=== PATIENT | male | born 1995 | race Caucasian/White ===

== ENCOUNTER 2018-09-22 13:35 | Inpatient (IN) | payer BC, SELFPAY ==
[2018-09-22] VITALS (19 sets, daily range): BP systolic 135–166; BP diastolic 66–98; PULSE 76–140; RESP 11–20; TEMP 36.6–37.4; O2SAT 98–100; BMI 24.5; BMI 23.8; BMI 23.9
--- NOTE | 2018-09-22 14:07 | EKG12_ITS ---
Test Reason : PALP Blood Pressure : / mmHG Vent. Rate : 140 BPM Atrial Rate : 140 BPM P-R Int : 168 ms QRS Dur : 096 ms QT Int : 246 ms P-R-T Axes : 067 072 264 degrees QTc Int : 375 ms Atrial tachycardia Anterior infarct , age undetermined ST & T wave abnormality, consider lateral ischemia Abnormal ECG Fast paper speed Reconfirmed by JOZEF HATFIELD, DAYTON ([id number]), assistant production editor RAMON HI ([id number]) on 09/29/2018 9:18:38 AM Referred By: Dayton Austin Confirmed By:DAYTON AUSTIN MD
--- NOTE | 2018-09-22 14:07 | EKG12_ITS ---
Test Reason : NSR Blood Pressure : / mmHG Vent. Rate : 081 BPM Atrial Rate : 081 BPM P-R Int : 150 ms QRS Dur : 100 ms QT Int : 350 ms P-R-T Axes : 057 065 -07 degrees QTc Int : 406 ms Normal sinus rhythm with sinus arrhythmia Minimal voltage criteria for LVH, may be normal variant T wave abnormality, consider lateral ischemia Abnormal ECG When compared with ECG of 22-SEP-2018 14:02, MANUAL COMPARISON REQUIRED, DATA IS UNCONFIRMED Confirmed by JOZEF HATFIELD, DAYTON ([id number]), editor producer RAMON HI ([id number]) on 09/27/2018 5:27:20 PM Referred By: Dayton Austin Confirmed By:DAYTON AUSTIN MD
--- NOTE | 2018-09-22 14:10 | RAD_ITS ---
STUDY: X-RAY CHEST REASON FOR EXAM: Male, 22 years old. Palpitations. TECHNIQUE: Single AP portable view of the chest. COMPARISON: None. FINDINGS: EKG electrodes are seen. The lungs are clear and expanded. There is no demonstrated pleural abnormality. Normal size heart. Normal mediastinum and ruba. Normal visualized pulmonary arteries. Normal visualized aortic arch and descending thoracic aorta. Normal visualized thoracic spine. Normal visualized ribs, clavicles, and shoulders. There is no demonstrated abnormality of the visualized soft tissue structures of the upper abdomen. RAD/Chest 1 View (Portable) IMPRESSION: Normal x-ray examination of the chest. Electronically Signed: Terrance North MD at 14:50 EST , Service support ,
[2018-09-22 14:20] LABS: Absolute Lymphocyte Count 2.27 X10^3/ul (0.83-4.51); Absolute Neutrophil Count 3.2 X10^3/uL (2.0-7.7); Basophil# 0.02 X10^3/uL; Basophil% 0.3 % (0-1); Eosinophil# 0.08 X10^3/uL; Eosinophils% 1.3 % (0-5); Hematocrit 47.8 % (40-54); Lymphocyte # 2.27 X10^3/ul (4.0); Lymphocyte % 36.7 % (19-41); Mean Corp Hgb Conc 33.5 g/gl (32-36); Mean Corpuscular Hgb 29.9 pg (27.0-32.0); Mean Corpuscular Volume 89.2 fL (80-94); Monocyte# 0.55 X10^3/uL; Monocyte% 8.9 % (0-10); Neutrophil # 3.24 X10^3/uL (2.7-7.7); Neutrophil % 52.3 % (47-70); Platelet Count 288 K/mm3 (150-450); RBC Distribution Width CV 13.3 % (11.6-14.6); RBC Distribution Width SD 43.2 fl (35.1-43.9); Red Blood Count 5.36 M/mm3 (4.6-6.2); White Blood Count 6.2 K/mm3 (4.4-11.0)
[2018-09-22 14:21] LABS: POSITIVE COUNT NO; POSITIVE DIFFERENTIAL NO; POSITIVE MORPHOLOGY NO
[2018-09-22] MEDS: Adenosine 6 MG/2 ML Syringe IV (14:23)
[2018-09-22] MEDS: Adenosine 6 MG/2 ML Syringe 12 MG IV ×2 (14:26→16:10)
--- NOTE | 2018-09-22 14:36 | ED.VISSUMM ---
- ER Visit Summary Date of Service: 09/22/18 Chief Complaint: Palpitations History of Present Illness: The patient is a 22 M who states that just prior to arrival he was sitting at his desk at work. States nothing was out of the ordinary. He reports that he has sudden onset of feeling not right. He went to the bathroom took his pulse and noticed that it was racing. He is never had this before. He notes 2-3 cups of coffee this morning which is actually less than what he would normally drink. He is a non-smoker. He denies any ingestions. In high school he is a swimmer and ran cross-country. He had no issues with aerobic exercise or any syncope. He never had any abnormal sports physicals. He has not remained with consistent exercise. He has no unexpected weight loss or weight gain. No thyroid issues. He denies any muscle cramps. Physical Examination: Stable noted tachycardia in the 130s-140 range Gen: Well-nourished well-developed Head: Normocephalic atraumatic Eyes: Perrl EOMI ENT: TMs clear no rhinorrhea moist mucous membranes Neck: Supple no lymphadenopathy no JVD nontender CVS: Regular rate cardiac rhythm no murmurs normal S1-S2 Respiratory: No distress clear to auscultation bilaterally chest nontender Abdomen: Soft nontender nondistended normal bowel sounds no masses Back: Nontender Extremity: Nontender no edema Skin: Normal color no rash Neuro: alert orientated ?3 CN II-XII intact normal strength sensation reflexes gait cerebellar Psych: Anxious Test Results: EKG demonstrates a tachycardia I see P waves before each QRS complex.. CBC BMP magnesium and TSH were normal. Chest x-ray shows a normal mediastinal silhouette. Emergency Department Course and Treatment: I attempted a vagal maneuver with no success. Patient received 6 mg of adenosine with no change. 12 mg of adenosine resulted in about 3 bradycardic beats each with the P wave and then back into a tachycardia. I spoke with cardiology, Dr. Austin, who recommended 20 mg of Cardizem. We administered this with no significant change in his rate. I spoke again with cardiology and we are going to administer 12 mg of adenosine. Impression: 1. Tachycardia This note was generated with [employer] dictation software. It may contain incorrect words, spelling, and punctuation that were not noted in review of the chart prior to signing <Hunter Vasquez - Last Filed: 09/22/18 16:02> - ER Visit Summary Date of Service: 09/22/18 Emergency Department Course and Treatment: Dr. Austin came in to evaluate the patient and will admit the patient to his service for observation and further evaluation of his SVT. Disposition: Admit for observation Impression: Supraventricular tachycardia This note was generated with ZenRoboticsation software. It may contain incorrect words, spelling, and punctuation that were not noted in review of the chart prior to signing <Alvin Lam - Last Filed: 09/22/18 17:05> ED Disposition <Hunter Vasquez - Last Filed: 09/22/18 16:02> <Alvin Lam - Last Filed: 09/22/18 17:05> - Plan for ED Patient: Disposition: Acute Care Hospital [facility] Diagnosis: Supraventricular tachycardia Referrals: Care Physician,No Primary [Primary Care Provider] -
[2018-09-22 14:38] LABS: Anion Gap 10 (5-15); BUN 19 mg/dL (7-18); BUN/Creat Ratio 14.8 RATIO (10-20); Calcium,Total 9.6 mg/dL (8.5-10.1); Chloride 102 mmol/L (98-107); Creatinine, Serum 1.28 mg/dL (0.70-1.30); EST Glomerular Filtration Rate 74 mL/min (>60); Est Glom Filt Rate - Afr Amer 90 mL/min (>60); Estimated Creatinine Clearance 90.52 ml/min; Glucose 105 mg/dL (74-106); Potassium 3.2 mmol/L (3.5-5.1); Sodium Level 139 mmol/L (136-145); Thyroid Stim Hormone (TSH) 0.75 uIU/mL (0.358-3.74)
--- NOTE | 2018-09-22 14:46 | ED.DCSUM_ITS ---
- ER Visit Summary Date of Service: 09/22/18 Chief Complaint: Palpitations History of Present Illness: The patient is a 22 M who states that just prior to arrival he was sitting at his desk at work. States nothing was out of the ordinary. He reports that he has sudden onset of feeling not right. He went to the bathroom took his pulse and noticed that it was racing. He is never had this before. He notes 2-3 cups of coffee this morning which is actually less than what he would normally drink. He is a non-smoker. He denies any ingestions. In high school he is a swimmer and ran cross-country. He had no issues with aerobic exercise or any syncope. He never had any abnormal sports physicals. He has not remained with consistent exercise. He has no unexpected weight loss or weight gain. No thyroid issues. He denies any muscle cramps. Physical Examination: Stable noted tachycardia in the 130s-140 range Gen: Well-nourished well-developed Head: Normocephalic atraumatic Eyes: Perrl EOMI ENT: TMs clear no rhinorrhea moist mucous membranes Neck: Supple no lymphadenopathy no JVD nontender CVS: Regular rate cardiac rhythm no murmurs normal S1-S2 Respiratory: No distress clear to auscultation bilaterally chest nontender Abdomen: Soft nontender nondistended normal bowel sounds no masses Back: Nontender Extremity: Nontender no edema Skin: Normal color no rash Neuro: alert orientated ?3 CN II-XII intact normal strength sensation reflexes gait cerebellar Psych: Anxious Test Results: EKG demonstrates a tachycardia I see P waves before each QRS complex.. CBC BMP magnesium and TSH were normal. Chest x-ray shows a normal mediastinal silhouette. Emergency Department Course and Treatment: I attempted a vagal maneuver with no success. Patient received 6 mg of adenosine with no change. 12 mg of adenosine resulted in about 3 bradycardic beats each with the P wave and then back into a tachycardia. I spoke with cardiology, Dr. Austin, who recommended 20 mg of Cardizem. We administered this with no significant change in his rate. I spoke again with cardiology and we are going to administer 12 mg of adenosine. Impression: 1. Tachycardia This note was generated with gamesGRABR dictation software. It may contain incorrect words, spelling, and punctuation that were not noted in review of the chart prior to signing <Hunter Vasquez - Last Filed: 09/22/18 16:02> - ER Visit Summary Date of Service: 09/22/18 Emergency Department Course and Treatment: Dr. Austin came in to evaluate the patient and will admit the patient to his service for observation and further evaluation of his SVT. Disposition: Admit for observation Impression: Supraventricular tachycardia This note was generated with SmartCrowdsation software. It may contain incorrect words, spelling, and punctuation that were not noted in review of the chart prior to signing <Alvin Lam - Last Filed: 09/22/18 17:05> ED Disposition <Hunter Vasquez - Last Filed: 09/22/18 16:02> <Alvin Lam - Last Filed: 09/22/18 17:05> - Plan for ED Patient: Disposition: Acute Care Hospital [facility] Diagnosis: Supraventricular tachycardia Referrals: Care Physician,No Primary [Primary Care Provider] -
[2018-09-22] MEDS: dilTIAZem 25 MG/5 ML Vial 20 MG IV BOLUS ×2 (15:33→18:24)
--- NOTE | 2018-09-22 17:56 | ECHOD_ITS ---
Reason For Study: ARRHRYTHMIA Procedure This was a 2D Doppler, Color Flow transthoracic echocardiogram. Exam performed portable in patient room. Left Ventricle Normal LV size. Left ventricular systolic function is normal. The estimated ejection fraction is 65 %. No evidence for diastolic dysfunction. No regional wall motion abnormalities noted. Right Ventricle Normal RV size. Normal systolic function. Atria Normal left atrium. Normal right atrium. Normal atrial septum. Mitral Valve Normal mitral valve. Tricuspid Valve Normal tricuspid valve. Trivial tricuspid valve insufficiency. Aortic Valve Normal aortic valve. Trisinus/trileaflet aortic valve. Pulmonic Valve Normal pulmonic valve. Great Vessels Normal aortic root. The pulmonary artery is normal size. Normal inferior vena cava. Pericardium/Pleural No pericardial effusion. MMode/2D Measurements & Calculations LVIDd: 4.3 cm IVSd: 0.83 cm Ao root diam: 2.8 cm LVIDs: 3.0 cm LVPWd: 0.90 cm RVDd: 3.4 cm FS: 29.7 % LAV(MOD-bp): 24.1 ml LVAd ap4: 33.4 cm2 SV(MOD-sp4): 66.2 ml LAV(MOD-bp) Indexed: 12.8 ml/m2 EDV(MOD-sp4): 109.2 ml LAV(MOD-sp2): 23.4 ml EDV(sp4-el): 113.2 ml LAV(MOD-sp4): 24.3 ml LVAs ap4: 18.0 cm2 ESV(MOD-sp4): 42.9 ml ESV(sp4-el): 43.9 ml EF(MOD-sp4): 60.7 % EF(sp4-el): 61.2 % SV(sp4-el): 69.3 ml LA A4 area: 11.3 cm2 LA dimension(2D): 2.7 cm RA A4 area: 13.1 cm2 Time Measurements MV dec time: 0.29 sec Doppler Measurements & Calculations MV E max ken: 92.3 cm/sec Lat Peak E' Ken: 23.0 cm/sec Med Peak E' Ken: 15.0 cm/sec MV A max ken: 40.5 cm/sec E/E' lat: 4.0 E/E' med: 6.2 MV E/A: 2.3 Ao V2 max: 132.2 cm/sec LV V1 max: 120.7 cm/sec PA V2 max: 130.7 cm/sec Ao max P.0 mmHg LV V1 max P.8 mmHg Interpretation Summary Normal LV size. Left ventricular systolic function is normal. The estimated ejection fraction is 65 %. No evidence for diastolic dysfunction. Structurally normal valves. Ordering Physician: Dayton Austin Referring Physician: Dayton Austin Performed By: Katie Zapata RDCS
--- NOTE | 2018-09-22 18:01 | PCM.CONS.C ---
Reason for Consult Date of Consultation: 09/22/18 Reason for Consultation: Palpitations History of Present Illness: The patient is a 22 year old M with no previous medical history who was in his usual state of health until this morning. He said he drank his usual 3 or so cups of coffee at work and then after while he is at this unusual sensation he felt his heart racing but denied any chest pain. He presented to the emergency room was evaluated and noted to be in a narrow complex tachycardia which initially was thought to be sinus tachycardia. He was given 6 mg and then 12 mg of adenosine with no significant improvement. There was mild slowing of the heart rate noted. Cardiology was called for further evaluation. Intravenous Cardizem was given 20 mg with no significant slowing. The patient appeared to maintain a heart rate of approximately 130-140 bpm. [] Past Medical History Allergies/Adverse Reactions: Allergies cat dander Allergy (Verified 09/22/18 13:42) Shortness of breath Home Medications: Ambulatory Orders Medication Instructions Recorded NK 09/22/18 Surgical History: no surgical history Smoking Status: Never smoker Alcohol: None Drugs: None Review of Systems - Review of Systems General: Denies: Fever, Night Sweats, Fatigue HEENT: Denies: Vision Change Cardiovascular: Reports: Palpitations. Denies: Chest Discomfort, Shortness of Breath, Orthopnea, PND, Peripheral Edema, Lightheadedness, Dizziness, Near Syncope, Syncope Respiratory: Denies: Cough, Sputum Production, Hemoptysis Gastrointestinal: Denies: Hematemesis, Hematochezia, Melena Genitourinary: Denies: Dysuria, Hematuria Skin: Denies: Rash Neurological: Denies: Dizziness Psychiatric: Denies: Anxiety Endocrine: Denies: Unexplained Weight Loss Hematologic/ Lymphatic: Denies: Anemia Subjectve: Pleasant gentleman in no apparent distress mildly anxious. Objective: Vital Signs Temp Pulse Resp BP Pulse Ox 99.4 F H 114 H 16 141/83 H 99 09/22/18 17:42 09/22/18 17:47 09/22/18 17:42 09/22/18 17:42 09/22/18 17:42 Oxygen Flow Rate (L/min) 2 Oxygen Delivery Method Room Air Weight: 161 lb 9.581 oz Body Mass Index (BMI) 23.8 General: Awake, Alert, Oriented x 3 HEENT: PERRL, EOMI, Sclera Non Icteric Neck: Supple, Good ROM, No Lymph Node Enlargement Lungs: Clear to auscultation Cardiovascular: Regular Rhythm, Normal S1, Normal S2, No Murmurs, No Rubs, No Gallops Vascular: No Carotid Bruits, Normal Femoral Pulses, Normal Radial Pulses, Normal Dorsalis Pedal Pulse, Normal Posterior Tibial Pulses Abdomen: Bowel Sounds Present, Soft, Non Tender, No HSM, No Organomegaly Extremities: No Cyanosis, No Clubbing, No edema Lymphatic: No Lymph Node Enlargement Neurological: No Focal Motor or Sensory Deficit Psych/Mental Status: Appropriate 09/22/18 13:45: WBC 6.2, RBC 5.36, Hgb 16.0, Hct 47.8, MCV 89.2, MCH 29.9, MCHC 33.5, RDW 13.3, RDW Differential 43.2, Plt Count 288, MPV 11.0, Immature Gran % (Auto) 0.500, Neut % (Auto) 52.3, Lymph % (Auto) 36.7, [place] % (Auto) 8.9, Eos % (Auto) 1.3, Baso % (Auto) 0.3, Absolute Neuts (auto) 3.2, Total Counted Not Reportable 09/22/18 13:45: Sodium 139, Potassium 3.2 L, Chloride 102, Carbon Dioxide 27.0, Anion Gap 10, BUN 19 H, Creatinine 1.28, Est GFR (MDRD) Af Amer 90, Est GFR (MDRD) Non-Af 74, BUN/Creatinine Ratio 14.8, Glucose 105, Calcium 9.6, Magnesium 2.0 Rhythm: EKG: ECHO: Stress Test: Cardiac Cath: PCI: CT Surgery: Holter monitor: EPS: PPM: CXR: Chest CT Scan: Assessment/Plan 1. Probable automatic atrial tachycardia The patient appears to have an automatic atrial tachycardia the etiology of which is unclear at this time. My recommendation will be to start intravenous Cardizem and see whether one can slow down his heart rate. An echocardiogram was performed in a.m. to assess his left ventricular function. If patient keeps maintaining this rhythm we may need to consult an brush cleaner for further evaluation. Electrolytes to be replaced as appropriate. Thank you for allowing me to participate in the care of your patient. Please don't hesitate to call if any issues arise.
--- NOTE | 2018-09-22 18:06 | CON.PCM_ITS ---
Reason for Consult Date of Consultation: 09/22/18 Reason for Consultation: Palpitations History of Present Illness: The patient is a 22 year old M with no previous medical history who was in his usual state of health until this morning. He said he drank his usual 3 or so cups of coffee at work and then after while he is at this unusual sensation he felt his heart racing but denied any chest pain. He presented to the emergency room was evaluated and noted to be in a narrow complex tachycardia which initially was thought to be sinus tachycardia. He was given 6 mg and then 12 mg of adenosine with no significant improvement. There was mild slowing of the heart rate noted. Cardiology was called for further evaluation. Intravenous Cardizem was given 20 mg with no significant slowing. The patient appeared to maintain a heart rate of approximately 130-140 bpm. [] Past Medical History Allergies/Adverse Reactions: Allergies cat dander Allergy (Verified 09/22/18 13:42) Shortness of breath Home Medications: Ambulatory Orders Medication Instructions Recorded NK 09/22/18 Surgical History: no surgical history Smoking Status: Never smoker Alcohol: None Drugs: None Review of Systems - Review of Systems General: Denies: Fever, Night Sweats, Fatigue HEENT: Denies: Vision Change Cardiovascular: Reports: Palpitations. Denies: Chest Discomfort, Shortness of Breath, Orthopnea, PND, Peripheral Edema, Lightheadedness, Dizziness, Near Syncope, Syncope Respiratory: Denies: Cough, Sputum Production, Hemoptysis Gastrointestinal: Denies: Hematemesis, Hematochezia, Melena Genitourinary: Denies: Dysuria, Hematuria Skin: Denies: Rash Neurological: Denies: Dizziness Psychiatric: Denies: Anxiety Endocrine: Denies: Unexplained Weight Loss Hematologic/ Lymphatic: Denies: Anemia Subjectve: Pleasant gentleman in no apparent distress mildly anxious. Objective: Vital Signs Temp Pulse Resp BP Pulse Ox 99.4 F H 114 H 16 141/83 H 99 09/22/18 17:42 09/22/18 17:47 09/22/18 17:42 09/22/18 17:42 09/22/18 17:42 Oxygen Flow Rate (L/min) 2 Oxygen Delivery Method Room Air Weight: 161 lb 9.581 oz Body Mass Index (BMI) 23.8 General: Awake, Alert, Oriented x 3 HEENT: PERRL, EOMI, Sclera Non Icteric Neck: Supple, Good ROM, No Lymph Node Enlargement Lungs: Clear to auscultation Cardiovascular: Regular Rhythm, Normal S1, Normal S2, No Murmurs, No Rubs, No Gallops Vascular: No Carotid Bruits, Normal Femoral Pulses, Normal Radial Pulses, Normal Dorsalis Pedal Pulse, Normal Posterior Tibial Pulses Abdomen: Bowel Sounds Present, Soft, Non Tender, No HSM, No Organomegaly Extremities: No Cyanosis, No Clubbing, No edema Lymphatic: No Lymph Node Enlargement Neurological: No Focal Motor or Sensory Deficit Psych/Mental Status: Appropriate 09/22/18 13:45: WBC 6.2, RBC 5.36, Hgb 16.0, Hct 47.8, MCV 89.2, MCH 29.9, MCHC 33.5, RDW 13.3, RDW Differential 43.2, Plt Count 288, MPV 11.0, Immature Gran % (Auto) 0.500, Neut % (Auto) 52.3, Lymph % (Auto) 36.7, [place] % (Auto) 8.9, Eos % (Auto) 1.3, Baso % (Auto) 0.3, Absolute Neuts (auto) 3.2, Total Counted Not Reportable 09/22/18 13:45: Sodium 139, Potassium 3.2 L, Chloride 102, Carbon Dioxide 27.0, Anion Gap 10, BUN 19 H, Creatinine 1.28, Est GFR (MDRD) Af Amer 90, Est GFR (MDRD) Non-Af 74, BUN/Creatinine Ratio 14.8, Glucose 105, Calcium 9.6, Magnesium 2.0 Rhythm: EKG: ECHO: Stress Test: Cardiac Cath: PCI: CT Surgery: Holter monitor: EPS: PPM: CXR: Chest CT Scan: Assessment/Plan 1. Probable automatic atrial tachycardia * The patient appears to have an automatic atrial tachycardia the etiology of which is unclear at this time. My recommendation will be to start intravenous Cardizem and see whether one can slow down his heart rate. * An echocardiogram was performed in a.m. to assess his left ventricular function. * If patient keeps maintaining this rhythm we may need to consult an call box wirer for further evaluation. * Electrolytes to be replaced as appropriate. * * Thank you for allowing me to participate in the care of your patient. Please don't hesitate to call if any issues arise.
--- NOTE | 2018-09-22 22:41 | EKG12_ITS ---
Test Reason : PALPS Blood Pressure : / mmHG Vent. Rate : 144 BPM Atrial Rate : 144 BPM P-R Int : 160 ms QRS Dur : 096 ms QT Int : 320 ms P-R-T Axes : 068 066 -76 degrees QTc Int : 495 ms Automatic Atrial Tachycardia Left ventricular hypertrophy with repolarization abnormality Inferior infarct , age undetermined Anterolateral infarct , age undetermined Abnormal ECG Reconfirmed by JOZEF HATFIELD, DAYTON ([id number]), city editor RAMON HI ([id number]) on 09/29/2018 9:18:03 AM Referred By: Dayton Austin Confirmed By:DAYTON AUSTIN MD
[2018-09-23] VITALS (16 sets, daily range): BP systolic 109–136; BP diastolic 54–83; PULSE 46–74; RESP 12–19; TEMP 36.7–37.1; O2SAT 97–99
[2018-09-23 07:06] LABS: BUN 16 mg/dL (7-18); Creatinine, Serum 1.23 mg/dL (0.70-1.30); Glucose 97 mg/dL (74-106)
[2018-09-23 07:07] LABS: Anion Gap 8 (5-15); Chloride 105 mmol/L (98-107); EST Glomerular Filtration Rate 78 mL/min (>60); Est Glom Filt Rate - Afr Amer 94 mL/min (>60); Potassium 3.8 mmol/L (3.5-5.1); Sodium Level 142 mmol/L (136-145); Thyroid Stim Hormone (TSH) 1.97 uIU/mL (0.358-3.74)
[2018-09-23] MEDS: dilTIAZem CD 180 MG Capsule PO (08:07)
--- NOTE | 2018-09-23 10:23 | CASEMGMT ---
JENN ROSA chart review: Pt is 22yo male with no medical hx and who was an active athlete through high school. First onset of tachycardia 09/22/18 morning while sitting at work and pt converted to SR after cardizem gtt. CM to follow for any further discharge planning/needs. [place] JENN ROSA
--- NOTE | 2018-09-23 11:41 | PCM.PN.CARD ---
Subjectve: Patient seen and evaluated. Appears to be doing better. Heart rate has normalized. Objective: Vital Signs Temp Pulse Resp BP Pulse Ox 98.7 F 74 16 120/62 99 09/23/18 10:59 09/23/18 10:59 09/23/18 10:59 09/23/18 10:59 09/23/18 10:59 Oxygen Flow Rate (L/min) 2 Oxygen Delivery Method Room Air Weight: 161 lb 9.581 oz Body Mass Index (BMI) 23.8 Intake and Output for Last 24 Hours 09/21/18 09/22/18 09/23/18 23:59 23:59 23:59 Intake Total 337.1 / 337.1 364.3 / 364.3 Output Total 1075 / 1075 Balance -737.9 / -737.9 364.3 / 364.3 General: Awake, Alert, Oriented x 3 HEENT: PERRL, EOMI, Sclera Non Icteric Neck: Supple, Good ROM, No Lymph Node Enlargement Lungs: Clear to auscultation Cardiovascular: Regular Rhythm, Normal S1, Normal S2, No Murmurs, No Rubs, No Gallops Vascular: No Carotid Bruits, Normal Femoral Pulses, Normal Radial Pulses, Normal Dorsalis Pedal Pulse, Normal Posterior Tibial Pulses Abdomen: Bowel Sounds Present, Soft, Non Tender, No HSM, No Organomegaly Extremities: No Cyanosis, No Clubbing, No edema Neurological: No Focal Motor or Sensory Deficit Psych/Mental Status: Appropriate 09/22/18 13:45: WBC 6.2, RBC 5.36, Hgb 16.0, Hct 47.8, MCV 89.2, MCH 29.9, MCHC 33.5, RDW 13.3, RDW Differential 43.2, Plt Count 288, MPV 11.0, Immature Gran % (Auto) 0.500, Neut % (Auto) 52.3, Lymph % (Auto) 36.7, [place] % (Auto) 8.9, Eos % (Auto) 1.3, Baso % (Auto) 0.3, Absolute Neuts (auto) 3.2, Total Counted Not Reportable 09/22/18 13:45: Sodium 139, Potassium 3.2 L, Chloride 102, Carbon Dioxide 27.0, Anion Gap 10, BUN 19 H, Creatinine 1.28, Est GFR (MDRD) Af Amer 90, Est GFR (MDRD) Non-Af 74, BUN/Creatinine Ratio 14.8, Glucose 105, Calcium 9.6, Magnesium 2.0 09/23/18 06:10: Sodium 142, Potassium 3.8, Chloride 105, Carbon Dioxide 29.0, Anion Gap 8, BUN 16, Creatinine 1.23, Est GFR (MDRD) Af Amer 94, Est GFR (MDRD) Non-Af 78, BUN/Creatinine Ratio 13.0, Glucose 97, Calcium 9.0 Rhythm: EKG: ECHO: Stress Test: Cardiac Cath: PCI: CT Surgery: Holter monitor: EPS: PPM: CXR: Chest CT Scan: Medical Necessity - Tobacco Use Smoking Status: Never smoker Assessment/Plan 1. Probable automatic atrial tachycardia The patient appears to have an automatic atrial tachycardia the etiology of which is unclear at this time. He was started on intravenous Cardizem which slowed down his heart rate and subsequently converted to oral Cardizem. He appears to be tolerating the above. His echocardiogram done today demonstrated preserved ejection fraction with no valvular abnormalities. He will be discharged today for outpatient follow-up with plant tour guide.
--- NOTE | 2018-09-23 11:43 | PCM.DC ---
- Discharge Diagnoses Current Active Problems: Current Active and Chronic Problems Supraventricular tachycardia (Acute) You will use the following diet at home:: No restrictions Discharge Activity: Return to Normal Activity Allergies/Adverse Reactions: Allergies cat dander Allergy (Verified 09/22/18 13:42) Shortness of breath Medications to take at Discharge Diltiazem CD [Cardizem CD] 180 mg PO DAILY #30 capsule 09/23/18 Primary Care Physician: Care Physician,No Primary [Primary Care Provider] - Test Results: Test results from this visit will be discussed in further detail at your follow-up appointment, if applicable. Please Follow Up With: Clinical Services Specialist Dr Jerome Proposed Discharge Date: 09/23/18
--- NOTE | 2018-09-23 11:46 | DCINST_ITS ---
- Discharge Diagnoses Current Active Problems: Current Active and Chronic Problems Supraventricular tachycardia (Acute) You will use the following diet at home:: No restrictions Discharge Activity: Return to Normal Activity Allergies/Adverse Reactions: Allergies cat dander Allergy (Verified 09/22/18 13:42) Shortness of breath Medications to take at Discharge Diltiazem CD [Cardizem CD] 180 mg PO DAILY #30 capsule 09/23/18 Primary Care Physician: Care Physician,No Primary [Primary Care Provider] - Test Results: Test results from this visit will be discussed in further detail at your follow- up appointment, if applicable. Please Follow Up With: Research Subject Dr Jerome Proposed Discharge Date: 09/23/18
== END 2018-09-23 12:22 | disposition home or self-care (01) | DRG 310 ==
LOC: ED 17:05 → PCU 17:16
PROVIDERS: Admitting Provider Internal Medicine Cardiovascular Disease; Emergency Provider Emergency Medicine; Referring Provider Internal Medicine Cardiovascular Disease; Visit Provider Internal Medicine Cardiovascular Disease
DX: I47.1 Supraventricular tachycardia (principal)
CPT/HCPCS: 36415; 71045; 80048; 83735; 84443; 85025; 93005; 93306; 99284; J7030; A4216; J0153